=== PATIENT | female | born 1980 | race Caucasian/White ===

== ENCOUNTER 2016-11-29 00:51 | Emergency (ER) | payer SELFPAY ==
[2016-11-29 00:51] VITALS: BMI 27.3
[2016-11-29 01:06] VITALS: RESP 20
[2016-11-29] MEDS ORDERED: Sodium Chloride 0.9% 1,000 ML IV ONE ×2 (01:13→01:14)
--- NOTE | 2016-11-29 01:24 | C.PDOC ---
History Of Present Illness Patient is a 35 year old female who presents to the ER with a complaint of severe burning during urination, associated with back pain and lower abdominal pain. Patient states her urine is cloudy. Patient also reports her LMP was more than a month ago. Denies fever, nausea, and diarrhea. Chief Complaint (Nursing): Female Genitourinary History/Exam Limitations: no limitations Current Symptoms Are (Timing): Still Present Quality Of Discomfort: Burning Associated Symptoms: Back Pain, Urinary Symptoms (Dysuria ), Other (Lower abdominal pain) Past Medical History Reviewed: Historical Data, Nursing Documentation, Vital Signs Vital Signs: Last Vital Signs Temp 97.9 F 11/29/16 01:05 Pulse 120 H 11/29/16 01:05 Resp 20 11/29/16 01:05 BP 117/68 11/29/16 01:05 Pulse Ox 96 11/29/16 04:29 - Medical History PMH: Fibromyalgia Surgical History: No Surg Hx - [facility] Procedures DETOXIFICATION SERVICES FOR SUBSTANCE ABUSE TREATMENT (04/24/16) INDIVIDUAL PSYCHOTHERAPY, SUPPORTIVE (04/24/16) INJECT/INFUSE ELECTROLYT (08/30/13) Family History: States: Unknown Family Hx - Social History Hx Tobacco Use: No Hx Alcohol Use: No Hx Substance Use: Yes - Immunization History Hx Tetanus Toxoid Vaccination: No Hx Influenza Vaccination: Yes Hx Pneumococcal Vaccination: No Review Of Systems Constitutional: Negative for: Fever, Chills Gastrointestinal: Positive for: Abdominal Pain (Lower). Negative for: Nausea, Vomiting Genitourinary: Positive for: Dysuria Musculoskeletal: Positive for: Back Pain Physical Exam - Physical Exam Appears: Non-toxic, Other (Moderate distress) Skin: Normal Color, Warm, Dry Head: Atraumatic, Normacephalic Oral Mucosa: Moist Chest: Symmetrical, No Tenderness Cardiovascular: Rhythm Regular, No Murmur Respiratory: Normal Breath Sounds, No Rales, No Rhonchi, No Wheezing Gastrointestinal/Abdominal: Soft, No Tenderness Back: Paraspinal Tenderness (Bilateral Lumbar) Neurological/Psych: Oriented x3, Normal Speech, Normal Cognition ED Course And Treatment - Laboratory Results Result Diagrams: 11/29/16 01:37 11/29/16 01:37 O2 Sat by Pulse Oximetry: 96 (Room air) Pulse Ox Interpretation: Normal - CT Scan/US CT of abd/pelvis w/o contrast Other Rad Studies (CT/US): Read By Radiologist, Radiology Report Reviewed CT/US Interpretation: IMPRESSION: There is mild left hydroureteronephrosis. This is likely secondary to a recently passed stone versus. pyelonephritis.Clinical correlation is advised. Progress Note: Blood work, urinalysis, CT of Abd/pelvis w/o IV or PO contrast and POC test ordered. IV fluids administered. Disposition Counseled Patient/Family Regarding: Diagnosis - Disposition Referrals: [facility] [Outside] Disposition: HOME/ ROUTINE Disposition Time: 04:39 Condition: STABLE Prescriptions: Ciprofloxacin [Cipro] 1 tab PO BID #14 tab Phenazopyridine HCl [Pyridium] 200 mg PO TID #20 tablet traMADol/Acetaminophen [Ultracet 325 MG-37.5 MG] 1 tab PO Q6 #14 tab Instructions: Urinary Tract Infection in Women (GEN), Renal Colic (GEN) - POA Present On Arrival: None - Clinical Impression Clinical Impression: Unspecified renal colic, Urinary tract infection - Scribe Statement The provider has reviewed the documentation as recorded by the Scribwilner Olivier All medical record entries made by the Faridehibwilner were at my direction and personally dictated by me. I have reviewed the chart and agree that the record accurately reflects my personal performance of the history, physical exam, medical decision making, and the department course for this patient. I have also personally directed, reviewed, and agree with the discharge instructions and disposition.
[2016-11-29] MEDS ORDERED: Sodium Chloride 0.9% 1,000 ML ONE (01:29)
[2016-11-29 01:45] LABS: BASO % 0.2 % (0.0-2.0); EOS % 0.2 % (0.0-4.0); HEMATOCRIT 33.2 % (34.0-47.0); LYMPH # 2.1 K/uL (1.0-4.3); MEAN CELL VOLUME 83.1 fL (81.0-99.0); MEAN CORPUSCULAR HEMOGLOBIN 27.6 pg (27.0-31.0); MEAN CORPUSCULAR HGB CONC 33.2 g/dL (33.0-37.0); MEAN PLATELET VOLUME 8.5 fL (7.2-11.7); MONO % 12.3 % (0.0-10.0); RED CELL DISTRIBUTION WIDTH 12.6 % (11.5-14.5); WHITE BLOOD COUNT 15.9 K/uL (4.8-10.8)
[2016-11-29 01:51] LABS: CHLORIDE 96 mmol/L (98-107); POTASSIUM 4.7 mmol/L (3.6-5.2); SODIUM 135 mmol/L (132-148)
[2016-11-29 01:53] LABS: BILIRUBIN,TOTAL 1.8 mg/dL (0.2-1.3); GFR AFRICAN-AMERICAN > 60
[2016-11-29 01:54] LABS: ALB/GLOB RATIO 1.1 (1.0-2.1); ALKALINE PHOSPHATASE 44 U/L (38-126); ALT/SGPT 7 U/L (9-52); AST/SGOT 28 U/L (14-36); BLOOD UREA NITROGEN 20 mg/dL (7-17); CALCIUM 8.7 mg/dl (8.6-10.4); CARBON DIOXIDE 25 mmol/L (22-30); GLUCOSE,RANDOM 111 mg/dL (65-105); TOTAL PROTEIN 8.1 g/dL (6.3-8.3)
[2016-11-29] MEDS ORDERED: Ciprofloxacin 400mg/200ml D5W 400 MG/200 ML BAG IVPB STA (02:29)
[2016-11-29 03:35] LABS: RBC URINE 27 /hpf (0-3); URINE BACTERIA OCC (<OCC); URINE BILIRUBIN NEGATIVE (NEGATIVE); URINE BLOOD 2+ (NEGATIVE); URINE COLOR Yellow (YELLOW); URINE GLUCOSE (UA) NORMAL (Normal); URINE KETONE NEGATIVE (NEGATIVE); URINE LEUKOCYTE ESTERASE 3+ Leu/uL (Negative); URINE PROTEIN 1+ mg/dL (NEGATIVE); URINE UROBILINOGEN NORMAL mg/dL (0.2-1.0); WBC URINE 325 /hpf (0-5)
[2016-11-29] MEDS ORDERED: Ciprofloxacin 400mg/200ml D5W 400 MG/200 ML BAG IVPB ONE (04:45)
[2016-11-29 05:33] VITALS: BP 130/82; PULSE 82; TEMP 98; O2SAT 98
--- NOTE | 2016-11-29 08:32 | CT ---
PROCEDURE: CT Abdomen and Pelvis without intravenous contrast HISTORY: back pain, dysuria COMPARISON: None. TECHNIQUE: Axial computed tomographic images were performed through the abdomen and pelvis without intravenous contrast. Subsequently, sagittal and coronal reformatted images were obtained. Radiation dose: Total exam DLP = 357 mGy-cm. This CT exam was performed using one or more of the following dose reduction techniques: Automated exposure control, adjustment of the mA and/or kV according to patient size, and/or use of iterative reconstruction technique. FINDINGS: LOWER THORAX: 2 millimeter subpleural nodule within the anterior aspect of the right middle lobe. Additional 3 millimeter pulmonary nodule in the lateral aspect of the left lower lobe in a subpleural position. 5 millimeter ground-glass nodule within the posterior aspect of the left lower lobe on series 3, image 13. LIVER: Unremarkable. No gross lesion or ductal dilatation. GALLBLADDER AND BILE DUCTS: Unremarkable. PANCREAS: Not well visualized without contrast. If there is concern for pancreatic changes, correlation with a contrast-enhanced CT is recommended. SPLEEN: Unremarkable. ADRENALS: Unremarkable. No mass. KIDNEYS AND URETERS: Mild left hydroureteronephrosis. No definite obstructing ureteral mass or calcification is identified. VASCULATURE: Unremarkable. No aortic aneurysm. BOWEL: Moderate fecal retention in the colon. Under distended distal sigmoid colon and rectum. APPENDIX: No findings to suggest acute appendicitis. PERITONEUM: Unremarkable. No free fluid. No free air. LYMPH NODES: Unremarkable. No enlarged lymph nodes. BLADDER: Unremarkable. REPRODUCTIVE: Unremarkable. BONES: No acute fracture. OTHER FINDINGS: Markedly limited study without intravenous contrast. IMPRESSION: Markedly limited study without intravenous contrast. Mild left hydroureteronephrosis. This is likely secondary to a recently passed calculus versus pyelonephritis. Clinical correlation is advised. Sub centimeter pulmonary nodules as described above. 3-6 month interval followup may be helpful. These findings were preliminarily reported at 4:23 a.m. on 11/29/[address] Janae Anna of [employer].
== END 2016-11-29 05:30 | disposition home or self-care (01) ==
LOC: C.ER 00:51
DX: N39.0 Urinary tract infection, site not specified (principal); N23 Unspecified renal colic
CPT/HCPCS: 74176; 80053; 81001; 83690; 84702; 84703; 85025; 87086; 87181; 96361; 96365; 96375; 99285; J0744; J1885; J7040

== ENCOUNTER 2016-12-07 18:58 | Emergency (ER) | payer SELFPAY ==
[2016-12-07 18:59] VITALS: BMI 27.3
[2016-12-07] MEDS ORDERED: HYDROmorphone 0.5 mg/0.5 ml ISec IM STA (19:10)
[2016-12-07 19:43] VITALS: TEMP 97.7
[2016-12-07 19:46] VITALS: BP 129/85; PULSE 64; RESP 20; O2SAT 100
--- NOTE | 2016-12-07 20:48 | C.PDOC ---
History Of Present Illness A 35 year old female presents to the ER c/o dislocated shoulder after a mechanical fall prior to arrival. Patient notes that she mechanically fell over boxes and fell landing on her stretched out left arm. 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 Time Seen by Provider: 12/07/16 19:04 Chief Complaint (Nursing): Upper Extremity Problem/Injury History Per: Patient History/Exam Limitations: no limitations Onset/Duration Of Symptoms: Hrs Current Symptoms Are (Timing): Still Present Quality: "Pain" Severity: Severe Recent travel outside of the [place]: No Additional History Per: Patient Past Medical History Reviewed: Historical Data, Nursing Documentation, Vital Signs Vital Signs: Last Vital Signs Temp 97.7 F 12/07/16 19:01 Pulse 64 12/07/16 19:44 Resp 20 12/07/16 19:44 BP 129/85 12/07/16 19:44 Pulse Ox 100 12/07/16 21:16 - Medical History PMH: Fibromyalgia - [facility] Procedures DETOXIFICATION SERVICES FOR SUBSTANCE ABUSE TREATMENT (04/24/16) INDIVIDUAL PSYCHOTHERAPY, SUPPORTIVE (04/24/16) INJECT/INFUSE ELECTROLYT (08/30/13) Family History: States: Unknown Family Hx - Social History Hx Tobacco Use: No Hx Alcohol Use: No Hx Substance Use: Yes - Immunization History Hx Influenza Vaccination: Yes Review Of Systems Except As Marked, All Systems Reviewed And Found Negative. Constitutional: Negative for: Fever, Chills Gastrointestinal: Negative for: Nausea, Vomiting Musculoskeletal: Positive for: Arm Pain (Left arm injury) Neurological: Negative for: Dizziness, Other (LOC) Physical Exam - Physical Exam Appears: Non-toxic, In Acute Distress Skin: Warm, Dry Head: Atraumatic, Normacephalic Extremity: Capillary Refill (+2), Other ("hollow" at sholder with palpable humural head anterior chest wall, good medical interpreter and sensation across hand) Pulses: Left Radial: Normal, Right Radial: Normal Neurological/Psych: Oriented x3, Normal Speech, Normal Cognition, Normal Motor, Normal Sensation ED Course And Treatment O2 Sat by Pulse Oximetry: 100 (RA) Pulse Ox Interpretation: Normal Progress Note: Medicated for pain x ray ordered and reviewed Medical Decision Making Medical Decision Making: xray (+) anterior dislocation no fx After verbal consent the shoulder was relocated using the [place] method procedure tolerated well' Post procedure good ROM, distal pulse 2+, sensation intacked Need for follow up discussed with pt Disposition Counseled Patient/Family Regarding: Diagnosis, Need For Followup - Disposition Referrals: Rubén Powell III, MD [Staff Provider] - Disposition: HOME/ ROUTINE Disposition Time: 20:46 Condition: GOOD Prescriptions: Naproxen [Naprosyn] 1 tab PO BID PRN #25 tab PRN Reason: Pain Instructions: Shoulder Dislocation (ED) - Clinical Impression Clinical Impression: Dislocation, shoulder, anterior - Scribe Statement The provider has reviewed the documentation as recorded by the Scribe Sunitha delacruz All medical record entries made by the Scribe were at my direction and personally dictated by me. I have reviewed the chart and agree that the record accurately reflects my personal performance of the history, physical exam, medical decision making, and the department course for this patient. I have also personally directed, reviewed, and agree with the discharge instructions and disposition.
--- NOTE | 2016-12-08 12:55 | RAD ---
PROCEDURE: Radiographs of the Left Shoulder HISTORY: pain COMPARISON: No prior. FINDINGS: BONES: No acute fractures. JOINTS: Anterior inferior dislocation of the humeral head relative to the glenoid. SOFT TISSUES: Normal. OTHER FINDINGS: None. IMPRESSION: Dislocation of the left humeral head relative to the glenoid. Limited study, no acute fractures identified. Concordant results with the preliminary interpretation rendered by the emergency department physician procedure.
--- NOTE | 2016-12-08 13:28 | RAD ---
PROCEDURE: Radiographs of the Left Shoulder HISTORY: post reduction COMPARISON: December 07, 2016. Pre reduction FINDINGS: BONES: Normal. No fracture. JOINTS: Normal. Glenohumeral and acromioclavicular joints preserved. No osteoarthritis. SOFT TISSUES: Normal. OTHER FINDINGS: None. IMPRESSION: Satisfactory position alignment of the glenohumeral relationship. No fracture identified on this single portable view. Concordant results with the preliminary interpretation rendered by the emergency department physician procedure.
== END 2016-12-07 21:15 | disposition home or self-care (01) ==
LOC: C.ER 18:58
DX: S43.015A Anterior dislocation of left humerus, initial encounter (principal); W01.0XXA Fall on same level from slipping, tripping and stumbling without subsequent striking against object, initial encounter
CPT/HCPCS: 23650; 73030; 96372; 99283; J1170

== ENCOUNTER 2018-04-04 23:31 | Emergency (ER) | payer MEDICAID ==
[2018-04-04 23:32] VITALS: BMI 27.3
--- NOTE | 2018-04-05 00:21 | C.PDOC ---
History Of Present Illness 37 year old female presents to the ED c/o left shoulder dislocation. Patient reports she was going downstairs when her left shoulder popped out of place. Patient denies injury,fall, trauma, weakness, numbness. Chief Complaint (Nursing): Upper Extremity Problem/Injury History Per: Patient History/Exam Limitations: no limitations Onset/Duration Of Symptoms: Hrs Current Symptoms Are (Timing): Still Present Quality: "Pain" Exacerbating Factor(s): Movement Additional History Per: Patient Past Medical History Reviewed: Historical Data, Nursing Documentation, Vital Signs Vital Signs: Last Vital Signs Temp 98.0 F 04/04/18 23:52 Pulse 106 H 04/04/18 23:52 Resp 22 04/04/18 23:52 BP 125/76 04/04/18 23:52 Pulse Ox 100 04/05/18 00:21 - Medical History PMH: Fibromyalgia Denies: Depression, Diabetes, Hepatitis, HIV, HTN, Chronic Kidney Disease, Seizures, Sexually Transmitted Disease Surgical History: No Surg Hx - [facility] Procedures DETOXIFICATION SERVICES FOR SUBSTANCE ABUSE TREATMENT (04/24/16) INDIVIDUAL PSYCHOTHERAPY, SUPPORTIVE (04/24/16) INJECT/INFUSE ELECTROLYT (08/30/13) Family History: States: Unknown Family Hx - Social History Hx Tobacco Use: No Hx Alcohol Use: No Hx Substance Use: Yes - Immunization History Hx Tetanus Toxoid Vaccination: No Hx Influenza Vaccination: Yes Hx Pneumococcal Vaccination: No Review Of Systems Constitutional: Negative for: Fever, Chills Eyes: Negative for: Vision Change Cardiovascular: Negative for: Chest Pain, Palpitations Musculoskeletal: Positive for: Shoulder Pain. Negative for: Arm Pain, Hand Pain Skin: Negative for: Rash Neurological: Negative for: Weakness, Numbness Physical Exam - Physical Exam Appears: Non-toxic, In Acute Distress Skin: Normal Color, Warm, Dry Head: Atraumatic, Normacephalic Eye(s): bilateral: Normal Inspection Neck: Normal ROM, Supple Chest: Symmetrical Cardiovascular: Rhythm Regular Respiratory: Normal Breath Sounds, No Rales, No Rhonchi, No Wheezing Extremity: No Normal ROM (left shoulder), Tenderness (left shoulder), Capillary Refill (< 2 seconds), Deformity (left shoulder anterior deltoid) Pulses: Left Radial: Normal, Right Radial: Normal Neurological/Psych: Oriented x3, Normal Speech, Normal Motor, Normal Sensation Gait: Steady ED Course And Treatment O2 Sat by Pulse Oximetry: 100 (On RA) Pulse Ox Interpretation: Normal Medical Decision Making Medical Decision Making: traction countertraction procedure was done, patient tolerated the procedure well and did not require anesthesia Disposition Counseled Patient/Family Regarding: Diagnosis - Disposition Referrals: [facility] [Outside] Rubén Powell III, MD [Staff Provider] - Disposition: HOME/ ROUTINE Disposition Time: 00:19 Condition: IMPROVED Instructions: Shoulder Dislocation (DC) Forms: [employer] (Angolan) - POA Present On Arrival: None - Clinical Impression Clinical Impression: Dislocated shoulder - Scribe Statement The provider has reviewed the documentation as recorded by the Scribe Keaton Dickinson All medical record entries made by the Scribe were at my direction and personally dictated by me. I have reviewed the chart and agree that the record accurately reflects my personal performance of the history, physical exam, medical decision making, and the department course for this patient. I have also personally directed, reviewed, and agree with the discharge instructions and disposition.
[2018-04-05 01:02] VITALS: BP 118/71; PULSE 81; RESP 18; TEMP 98.2; O2SAT 99
== END 2018-04-05 01:02 | disposition home or self-care (01) ==
LOC: C.ER 23:31
DX: S43.085A Other dislocation of left shoulder joint, initial encounter (principal); X58.XXXA Exposure to other specified factors, initial encounter

== ENCOUNTER 2018-08-11 10:20 | Emergency (ER) | payer MEDICAID ==
[2018-08-11 12:18] LABS: HCG,QUALITATIVE URINE POSITIVE (NEGATIVE)
[2018-08-11 12:25] LABS: SQUAMOUS EPITHIAL 46 /hpf (0-5); URINE BACTERIA FEW (<OCC); URINE BILIRUBIN 1+ (NEGATIVE); URINE BLOOD NEGATIVE (NEGATIVE); URINE CLARITY Hazy (Clear); URINE COLOR Amber (YELLOW); URINE GLUCOSE (UA) NORMAL (Normal); URINE LEUKOCYTE ESTERASE TRACE Leu/uL (Negative); URINE PROTEIN 2+ mg/dL (NEGATIVE)
[2018-08-11] MEDS ORDERED: Lactated Ringer's 1,000 ML IV ONE (12:27)
[2018-08-11] MEDS ORDERED: Lactated Ringer's 1,000 ML IV SCH (12:30)
[2018-08-11 12:45] LABS: BARBITURATES, UR NEGATIVE (NEGATIVE); BENZODIAZEPINES, UR NEGATIVE (NEGATIVE); PHENCYCLIDINE, UR NEGATIVE (NEGATIVE)
[2018-08-11 13:18] LABS: OPIATES, UR POSITIVE (NEGATIVE)
[2018-08-11 13:40] LABS: BASO % 0.4 % (0.0-2.0); EOS % 0.1 % (0.0-4.0); HEMOGLOBIN 10.3 g/dL (11.0-16.0); LYMPH # 0.9 K/uL (1.0-4.3); MEAN CORPUSCULAR HEMOGLOBIN 25.3 pg (27.0-31.0); MEAN CORPUSCULAR HGB CONC 32.8 g/dL (33.0-37.0); MEAN PLATELET VOLUME 10.3 fL (7.2-11.7); MONO # 0.4 K/uL (0.0-0.8); NEUT # 3.7 K/uL (1.8-7.0); NEUT % 74.5 % (50.0-75.0); RBC 4.07 Mil/uL (3.80-5.20); RED CELL DISTRIBUTION WIDTH 13.9 % (11.5-14.5)
[2018-08-11 13:42] LABS: MEAN CELL VOLUME 77.1 fL (81.0-99.0)
[2018-08-11 13:52] LABS: ALB/GLOB RATIO 0.9 (1.0-2.1); ALBUMIN 3.2 g/dL (3.5-5.0); ALT/SGPT 574 U/L (9-52); AST/SGOT 530 U/L (14-36); BLOOD UREA NITROGEN 9 mg/dL (7-17); CALCIUM 8.2 mg/dl (8.6-10.4); GFR NON-AFRICAN AMERICAN > 60
[2018-08-11] MEDS ORDERED: cefTRIAXone 2 GM in Sodium Chloride 0.9% 100 ML IVPB SCH (14:00)
[2018-08-11 14:42] LABS: BASO % 0.3 % (0.0-2.0); EOS % 0.1 % (0.0-4.0); HEMOGLOBIN 10.4 g/dL (11.0-16.0); LYMPH % 18.3 % (20.0-40.0); MEAN CELL VOLUME 77.4 fL (81.0-99.0); MEAN CORPUSCULAR HEMOGLOBIN 25.2 pg (27.0-31.0); MEAN CORPUSCULAR HGB CONC 32.5 g/dL (33.0-37.0); MEAN PLATELET VOLUME 9.9 fL (7.2-11.7); MONO # 0.4 K/uL (0.0-0.8); MONO % 6.8 % (0.0-10.0); NEUT % 74.5 % (50.0-75.0); RBC 4.12 Mil/uL (3.80-5.20); RED CELL DISTRIBUTION WIDTH 14.2 % (11.5-14.5); WHITE BLOOD COUNT 5.4 K/uL (4.8-10.8)
[2018-08-11 17:23] LABS: RAPID PLASMA REAGIN NONREACTIVE (NONREACTIVE)
[2018-08-11 20:13] VITALS: BP 129/76; PULSE 103; RESP 20
--- NOTE | 2018-08-12 14:43 | OBHP ---
Datetime: 08/11/2018 12:10 IP Adm Impression: No Active Labor IP Chief Complaint Other: Abdominal pain with N_V No Care IP Admit Plan: Observation/Evaluation Pelvic Type - PN: Adequate Extremities - PN: Normal Abdomen - PN: Normal Back - PN: Normal Breast - PN: Not Done Lungs - PN: Normal Heart - PN: Normal Thyroid - PN: Normal Neurologic - PN: Normal HEENT - PN: Normal General - PN: Normal FHR - Baseline A Provider: 150 EGA AdmitDate IP: 34.5 Vital Signs Provider: Reviewed; Within Normal Limits IP Chief Complaint: Maternal discomfort NICHD Variability Prov Fetus A: Minimal - Undetectable to <5bpm NICHD Accel Fetus A IP Provider: [id number] NICHD Decel Fetus A IP Provider: None Genitourinary Exam: Normal DTRs - PN: Normal
== END 2018-08-11 14:35 | disposition home or self-care (01) ==
LOC: C.EROB 10:20
DX: O26.893 Other specified pregnancy related conditions, third trimester (principal); Z3A.34 34 weeks gestation of pregnancy; R10.9 Unspecified abdominal pain
CPT/HCPCS: 80053; 80324; 80345; 80346; 80349; 80353; 80358; 80361; 81001; 83735; 83992; 84100; 84703; 85025; 86592; 86703; 86706; 86762; 86850; 86900; 87081; 87491; 87591; 96361; 96374; 96375; 99283; J0696; J7120

== ENCOUNTER 2018-08-26 03:43 | Inpatient (IN) | payer MEDICAID ==
[2018-08-26] MEDS ORDERED: Oxytocin 10 Units/ml Inj ONE (05:15)
--- NOTE | 2018-08-26 05:16 | OBDS ---
DELIVERY PERSONNEL Delivery Doctor: Mariah Wooten MD Scrub Nurse: Stefanie Gallegos RN Bdr: Sindhu Cruz RN MATERNAL INFORMATION Delivery Anesthesia: None Medications in Delivery: 20 UNITS Pitocin IM to left thigh Estimated Blood Loss (ml): 500 Placenta Cultured: Yes Maternal Complications: Precipitous Labor (<3hrs); Other Other Maternal Complications: Methadone use Provider Comments: Precipitpos delivery of live male infant, ASH position, loose nuchalcord x 1 easi ly reduced over head. 's mouth and nose bulb suctioned as delayed cord clamping observed. Umbil ical cord doubly clamped and cut; infant placed on mother's abdomen. Cord ph obtained; 7.18, base XS -16.4. Straight catherterization performed under sterile conditions. Approx 50 mL concentrated urine obta ined. Delivery of placenta with uterine exploration. Uterus firm and contracted. Placenta intact, 3 ves aditya cord. 20 units pitocin administered IM. Cervix, vagina, perineum inspected - no lacerations. Patient tolerated procedure well; hemostasis assured. was attended to by pediatric nurse and Attending, Dr. Clarke. EBL 500 mL Weight 6lb 6oz 's 9/9 LABOR SUMMARY EDC: 09/17/2018 00:00 No. Babies in Womb: 1 Labor Anesthesia: None LABOR INFORMATION Onset of Labor: 08/26/2018 03:00 Complete Dilatation: 08/26/2018 03:43 Oxytocin: N/A Steroids Given: None Reason Steroids Not Administered: Not Applicable MEMBRANES Membranes Rupture Method: Spontaneous Rupture of Membranes: 08/26/2018 03:00 Length of Rupture (hrs): 0.97 Amniotic Fluid Color: Clear Amniotic Fluid Amount: Moderate Amniotic Fluid Odor: Normal STAGES OF LABOR Stage 1 hrs: 0 Stage 1 min: 43 Stage 2 hrs: 0 Stage 2 min: 15 Stage 3 hrs: 0 Stage 3 min: 26 Total Time in Labor hrs: 1 Total Time in Labor min: 24 VAGINAL DELIVERY Episiotomy: None Laceration Extension: N/A Laceration Type: None Laceration Repair: Not Applicable Initial Vag Sponge Count: 10 Final Vag Sponge Count: 10 Sponge Count Correct: Yes Sharps Count Correct: N/A Count Comment: Correct BABY A INFORMATION Delivery Date/Time: 08/26/2018 03:58 Method of Delivery: Vaginal Born in Route : No : N/A Forceps: N/A Vacuum Extraction: N/A Shoulder Dystocia : No SHOULDER DYSTOCIA BABY A Delivery Date/Time: 08/26/2018 03:58 PRESENTATION/POSITION BABY A Presentation: Cephalic Cephalic Presentation: Vertex Vertex Position: Left Occipital Anterior Breech Presentation: N/A PLACENTA INFORMATION BABY A Placenta Delivery Time : 08/26/2018 04:24 Placenta Method of Delivery: Spontaneous Placenta Status: Delivered SCORES BABY A Heart Rate 1 min: >100 bpm Resp Effort 1 min: Good Cry Reflex Irritability 1 min: Cough or Sneeze or Pulls Away Muscle Tone 1 min: Active Motion Color 1 min: Body [place], Extremities Blue SCORE 1 MIN: 9 Heart Rate 5 min: >100 bpm Resp Effort 5 min: Good Cry Reflex Irritability 5 min: Cough or Sneeze or Pulls Away Muscle Tone 5 min: Active Motion Color 5 min: Body [place], Extremities Blue SCORE 5 MIN: 9 INFORMATION BABY A Gestational Age at Delivery: 36.6 Gestational Status: Term Outcome : Liveborn Infant Condition : Stable Infant Sex: Male IDENTIFICATION/MEDS BABY A ID Band Number: [id number] ID Band Location: Left Leg; Left Arm Sensor Applied: Yes Sensor Number: [id number] Sensor Location : Cord Clamp Vitamin K Given : Aquamephyton 1 mg IM; Left Thigh Erythromycin Given: Given Both Eyes WEIGHT/LENGTH BABY A Infant Birthweight (gms): 2900 Infant Weight (lb): 6 Weight (oz): 6 Infant Length Inches: 19.00 Length cms: 48.3 CORD INFORMATION BABY A No. Cord Vessels: 3 Nuchal Cord : Around Neck x1, Loose Cord Blood Taken: Yes Infant Suction: Mouth; Nose ASSESSMENT BABY A Infant Complications: None Physical Findings at Delivery: Within Normal Limits Respirations: Appears Normal Engineering Team Supervisor/ALS Called : No Infant Care By: DR CLARKE Transferred To: Remains with Mother
[2018-08-26] MEDS ORDERED: Oxycodone/Acetaminophen 5/325 mg Tab PO PRN (05:32)
[2018-08-26] MEDS ORDERED: Benzocaine/Menthol 20%-0.5% Topical Spray (60 ml) TOP PRN (05:32)
[2018-08-26 07:14] LABS: BASO # 0.1 K/uL (0.0-0.2); MEAN CORPUSCULAR HEMOGLOBIN 25.3 pg (27.0-31.0); MEAN CORPUSCULAR HGB CONC 31.6 g/dL (33.0-37.0); NEUT # 4.3 K/uL (1.8-7.0); WHITE BLOOD COUNT 7.1 K/uL (4.8-10.8)
[2018-08-26 07:19] LABS: BASO % 1.2 % (0.0-2.0); EOS % 0.7 % (0.0-4.0); HEMOGLOBIN 9.5 g/dL (11.0-16.0); LYMPH # 2.1 K/uL (1.0-4.3); MEAN PLATELET VOLUME 11.1 fL (7.2-11.7); MONO # 0.6 K/uL (0.0-0.8); MONO % 8.3 % (0.0-10.0); NEUT % 60.8 % (50.0-75.0); RBC 3.77 Mil/uL (3.80-5.20); RED CELL DISTRIBUTION WIDTH 16.6 % (11.5-14.5)
[2018-08-26 07:22] LABS: MEAN CELL VOLUME 79.9 fL (81.0-99.0)
[2018-08-26 07:59] LABS: BARBITURATES, UR NEGATIVE (NEGATIVE); BENZODIAZEPINES, UR NEGATIVE (NEGATIVE); PHENCYCLIDINE, UR NEGATIVE (NEGATIVE)
[2018-08-26 08:04] LABS: SQUAMOUS EPITHIAL < 1 /hpf (0-5); URINE BACTERIA RARE (<OCC)
[2018-08-26 08:05] LABS: URINE BILIRUBIN NEGATIVE (NEGATIVE); URINE BLOOD 1+ (NEGATIVE); URINE CLARITY Clear (Clear); URINE GLUCOSE (UA) NORMAL (Normal); URINE LEUKOCYTE ESTERASE NEG Leu/uL (Negative); URINE PROTEIN NEGATIVE (NEGATIVE)
[2018-08-26 08:14] LABS: URINE COLOR YELLOW (YELLOW)
[2018-08-26 08:18] LABS: OPIATES, UR POSITIVE (NEGATIVE)
[2018-08-26 08:25] LABS: ALBUMIN 2.9 g/dL (3.5-5.0); ALT/SGPT 548 U/L (9-52); AST/SGOT 363 U/L (14-36); BLOOD UREA NITROGEN 10 mg/dL (7-17); CALCIUM 8.1 mg/dl (8.6-10.4); GFR NON-AFRICAN AMERICAN > 60
[2018-08-26 09:59] LABS: HEPATITIS A IGM NEGATIVE (NEGATIVE); HEPATITIS B CORE AB NEGATIVE (NEGATIVE)
[2018-08-26] MEDS: Multiple Vitamins Tab PO SCH (10:02)
[2018-08-26 10:11] LABS: HEPATITIS C ANTIBODY NEGATIVE (NEGATIVE)
[2018-08-26 11:03] LABS: HEPATITIS B SURFACE AG Negative (NEGATIVE)
--- NOTE | 2018-08-26 14:37 | CP.PCM.CON ---
History of Present Illness - History of Present Illness History of Present Illness: GI Service Consult CC: elevated liver chemistries HPI: 36 year old woman had uneventful labor and delivery this morning. Feels well. Noted to have markedly elevated liver chemistries yesterday and today, asymptomatic, apparently new onset. Denies jaundice, Hepatitis, abdominal pain, N/V. Sono will be done this afternoon. Hepatitis profile is negative. On Methadone maintenance chronically for Opiate dependence. Denies OTC or herbal remedies. Was not pre-eclamptic. Review of Systems - Gastrointestinal Gastrointestinal: As Per HPI. absent: Abdominal Pain, Constipation, Loose Stools, Melena, Nausea, Vomiting - Genitourinary Genitourinary: absent: Dysuria, Flank Pain - Musculoskeletal Musculoskeletal: Arthralgias. absent: Back Pain - Integumentary Integumentary: absent: Jaundice - Psychiatric Psychiatric: Anxiety Past Patient History - Infectious Disease Hx of Infectious Diseases: None - Tetanus Immunizations Tetanus Immunization: Unknown - Past Medical History & Family History Past Medical History?: Yes - Past Social History Smoking Status: Former Smoker Alcohol: None Drugs: Opiates - CARDIAC Hx Hypertension: No - PULMONARY Hx Respiratory Disorders: No Hx Tuberculosis: No - NEUROLOGICAL Hx Seizures: No - HEENT Hx HEENT Problems: No - RENAL Hx Chronic Kidney Disease: No Hx Kidney Stones: Yes - ENDOCRINE/METABOLIC Hx Endocrine Disorders: No - HEMATOLOGICAL/ONCOLOGICAL Hx Cirrhosis: No Hx Hepatitis A: No Hx Hepatitis B: No Hx Hepatitis C: No Hx Human Immunodeficiency Virus (HIV): No - INTEGUMENTARY Hx Dermatological Problems: No - MUSCULOSKELETAL/RHEUMATOLOGICAL Hx Musculoskeletal Disorders: Yes (Fibromyalgia) - GASTROINTESTINAL Hx Gastrointestinal Disorders: No - GENITOURINARY/GYNECOLOGICAL Hx Sexually Transmitted Disorders: No - PSYCHIATRIC Hx Depression: No Hx Substance Use: Yes - SURGICAL HISTORY Hx Surgeries: Yes Other/Comment: Rt. wrist surgery - ANESTHESIA Hx Anesthesia: Yes Hx Anesthesia Reactions: No Meds Allergies/Adverse Reactions: Allergies Allergy/AdvReac Type Severity Reaction Status Date / Time No Known Allergies Allergy Verified 04/04/18 23:58 - Medications Medications: Current Medications Benzocaine/Menthol (Dermoplast 20%-0.5%) 0 ml TOP Q6 PRN PRN Reason: Perineal Discomfort Docusate Sodium (Colace) 100 mg PO BID [facility] Last Admin: 08/26/18 10:03 Dose: Not Given Ferrous Gluconate (Fergon) 324 mg PO BID [facility] Last Admin: 08/26/18 10:03 Dose: Not Given Ibuprofen (Motrin Tab) 600 mg PO Q6 PRN PRN Reason: Pain, Mild (1-3) Last Admin: 08/26/18 10:02 Dose: 600 mg Multivitamins (Hexavitamin) 1 tab PO DAILY [facility] Last Admin: 08/26/18 10:02 Dose: 1 tab Sennosides (Senokot Tab) 17.2 mg PO DAILY [facility] Last Admin: 08/26/18 10:03 Dose: Not Given Physical Exam - Constitutional Appears: Well, No Acute Distress - Head Exam Head Exam: NORMOCEPHALIC - Eye Exam Eye Exam: Normal appearance. absent: Scleral icterus - Neck Exam Neck exam: Positive for: Normal Inspection - Respiratory Exam Respiratory Exam: NORMAL BREATHING PATTERN - Cardiovascular Exam Cardiovascular Exam: REGULAR RHYTHM - GI/Abdominal Exam GI & Abdominal Exam: Soft. absent: Distended, Mass, Organomegaly, Tenderness - Neurological Exam Neurological exam: Alert, Oriented x3 - Psychiatric Exam Psychiatric exam: Normal Affect, Normal Mood - Skin Skin Exam: Normal Color Results - Vital Signs Recent Vital Signs: Last Vital Signs Temp 97.8 F 08/26/18 08:41 Pulse 62 08/26/18 08:41 Resp 18 08/26/18 08:41 BP 130/80 08/26/18 08:41 Pulse Ox 98 08/26/18 08:41 - Labs Result Diagrams: 08/26/18 05:10 08/26/18 07:59 Labs: Laboratory Results - last 24 hr 08/26/18 08/26/18 08/26/18 03:58 03:58 05:10 WBC 7.1 RBC 3.77 L Hgb 9.5 L Hct 30.1 L MCV 79.9 L D MCH 25.3 L MCHC 31.6 L RDW 16.6 H Plt Count 243 MPV 11.1 Neut % (Auto) 60.8 Lymph % (Auto) 29.0 [place] % (Auto) 8.3 Eos % (Auto) 0.7 Baso % (Auto) 1.2 Neut # (Auto) 4.3 Lymph # (Auto) 2.1 [place] # (Auto) 0.6 Eos # (Auto) 0.0 Baso # (Auto) 0.1 Sodium Potassium Chloride Carbon Dioxide Anion Gap BUN Creatinine Est GFR ( Amer) Est GFR (Non-Af Amer) Random Glucose Calcium Total Bilirubin AST ALT Alkaline Phosphatase Total Protein Albumin Globulin Albumin/Globulin Ratio Urine Color Yellow Urine Clarity Clear Urine pH 6.0 Ur Specific [place] 1.018 Urine Protein Negative Urine Glucose (UA) Normal Urine Ketones Negative Urine Blood 1+ H Urine Nitrate Negative Urine Bilirubin Negative Urine Urobilinogen 4.0 H Ur Leukocyte Esterase Neg Urine WBC (Auto) 1 Urine RBC (Auto) 91 H Ur Squamous Epith Cells < 1 Urine Bacteria Rare Urine Opiates Screen Positive H Urine Methadone Screen Positive H Ur Barbiturates Screen Negative Ur Phencyclidine Scrn Negative Ur Amphetamines Screen Negative U Benzodiazepines Scrn Negative U Oth Cocaine Metabols Negative U Cannabinoids Screen Negative Hepatitis A IgM Ab Hep Bs Antigen Hep B Core IgM Ab Hepatitis C Antibody HIV 1&2 Antibody Screen Blood Type Antibody Screen 08/26/18 08/26/18 08/26/18 06:20 06:47 07:55 WBC RBC Hgb Hct MCV MCH MCHC RDW Plt Count MPV Neut % (Auto) Lymph % (Auto) [place] % (Auto) Eos % (Auto) Baso % (Auto) Neut # (Auto) Lymph # (Auto) [place] # (Auto) Eos # (Auto) Baso # (Auto) Sodium Potassium Chloride Carbon Dioxide Anion Gap BUN Creatinine Est GFR ( Amer) Est GFR (Non-Af Amer) Random Glucose Calcium Total Bilirubin AST ALT Alkaline Phosphatase Total Protein Albumin Globulin Albumin/Globulin Ratio Urine Color Urine Clarity Urine pH Ur Specific [place] Urine Protein Urine Glucose (UA) Urine Ketones Urine Blood Urine Nitrate Urine Bilirubin Urine Urobilinogen Ur Leukocyte Esterase Urine WBC (Auto) Urine RBC (Auto) Ur Squamous Epith Cells Urine Bacteria Urine Opiates Screen Urine Methadone Screen Ur Barbiturates Screen Ur Phencyclidine Scrn Ur Amphetamines Screen U Benzodiazepines Scrn U Oth Cocaine Metabols U Cannabinoids Screen Hepatitis A IgM Ab Negative Hep Bs Antigen Negative Hep B Core IgM Ab Negative Hepatitis C Antibody Negative HIV 1&2 Antibody Screen Blood Type AB POSITIVE AB POSITIVE Antibody Screen Negative Negative 08/26/18 08/26/18 07:55 07:59 WBC RBC Hgb Hct MCV MCH MCHC RDW Plt Count MPV Neut % (Auto) Lymph % (Auto) [place] % (Auto) Eos % (Auto) Baso % (Auto) Neut # (Auto) Lymph # (Auto) [place] # (Auto) Eos # (Auto) Baso # (Auto) Sodium 135 Potassium 3.6 Chloride 106 Carbon Dioxide 23 Anion Gap 10 BUN 10 Creatinine 0.5 L Est GFR ( Amer) > 60 Est GFR (Non-Af Amer) > 60 Random Glucose 114 H D Calcium 8.1 L Total Bilirubin 0.9 AST 363 H D ALT 548 H Alkaline Phosphatase 282 H D Total Protein 5.9 L Albumin 2.9 L Globulin 3.0 Albumin/Globulin Ratio 1.0 Urine Color Urine Clarity Urine pH Ur Specific [place] Urine Protein Urine Glucose (UA) Urine Ketones Urine Blood Urine Nitrate Urine Bilirubin Urine Urobilinogen Ur Leukocyte Esterase Urine WBC (Auto) Urine RBC (Auto) Ur Squamous Epith Cells Urine Bacteria Urine Opiates Screen Urine Methadone Screen Ur Barbiturates Screen Ur Phencyclidine Scrn Ur Amphetamines Screen U Benzodiazepines Scrn U Oth Cocaine Metabols U Cannabinoids Screen Hepatitis A IgM Ab Hep Bs Antigen Hep B Core IgM Ab Hepatitis C Antibody HIV 1&2 Antibody Screen Negative Blood Type Antibody Screen Assessment & Plan (1) Elevated liver enzymes Assessment and Plan: Undetermined cause. Asymptomatic. Normal delivery today. Will check labwork for chronic liver disease + sonogram Status: Acute
[2018-08-26 16:20] LABS: IRON 50 ug/dL (37-170)
[2018-08-26 16:32] LABS: TOTAL IRON BINDING CAPACITY 527 ug/dL (250-450)
--- NOTE | 2018-08-26 17:20 | US ---
HISTORY: Elevated LFTs COMPARISON: CT abdomen and pelvis without contrast performed 11/29/16 TECHNIQUE: Sonographic evaluation of the abdomen. FINDINGS: LIVER: Measures 19.3 cm in sagittal dimension and appears within normal limits of size, shape, and echotexture. No focal hepatic mass identified. The main portal vein appears patent with normal directional flow. No intrahepatic bile duct dilatation. GALLBLADDER: No gallstones. No gallbladder wall thickening. Negative sonographic Goldstein's sign as assessed by the museum preparator. COMMON BILE DUCT: Measures 4 mm. PANCREAS: Not well visualized. RIGHT KIDNEY: Measures 9.8 x 4.7 x 4.5 cm. No obstructing calculus or hydronephrosis identified. LEFT KIDNEY: Measures 10.9 x 5.0 x 4.9 cm. No obstructing calculus or hydronephrosis identified. SPLEEN: Measures approximately 10 cm. Trace perisplenic fluid. AORTA: Limited views appear unremarkable. IVC: Limited views appear unremarkable. OTHER FINDINGS: None. IMPRESSION: Trace perisplenic fluid. Otherwise unremarkable study as above.
[2018-08-26 17:22] LABS: % IRON SATURATION 9 (20-55)
[2018-08-26] MEDS ORDERED: Methadone 40 mg Tab PO ONE (19:30)
[2018-08-26] MEDS: Methadone 40 mg Tab PO ONE ×2 (19:40→19:51)
[2018-08-27 08:45] LABS: BASO % 0.5 % (0.0-2.0); EOS # 0.1 K/uL (0.0-0.7); EOS % 1.3 % (0.0-4.0); HEMOGLOBIN 8.4 g/dL (11.0-16.0); LYMPH # 2.7 K/uL (1.0-4.3); LYMPH % 40.4 % (20.0-40.0); MEAN CELL VOLUME 79.7 fL (81.0-99.0); MEAN CORPUSCULAR HEMOGLOBIN 24.7 pg (27.0-31.0); MEAN PLATELET VOLUME 11.1 fL (7.2-11.7); MONO # 0.7 K/uL (0.0-0.8); MONO % 10.3 % (0.0-10.0); NEUT # 3.2 K/uL (1.8-7.0); NEUT % 47.5 % (50.0-75.0); RBC 3.38 Mil/uL (3.80-5.20); RED CELL DISTRIBUTION WIDTH 17.6 % (11.5-14.5); WHITE BLOOD COUNT 6.7 K/uL (4.8-10.8)
[2018-08-27 08:56] LABS: ALB/GLOB RATIO 0.9 (1.0-2.1); ALBUMIN 2.6 g/dL (3.5-5.0); ALT/SGPT 440 U/L (9-52); AST/SGOT 270 U/L (14-36); BILIRUBIN,DIRECT 0.6 mg/dL (0.0-0.4); BLOOD UREA NITROGEN 7 mg/dL (7-17); CALCIUM 7.8 mg/dl (8.6-10.4); GFR NON-AFRICAN AMERICAN > 60
[2018-08-27] MEDS: Multiple Vitamins Tab PO SCH (10:05)
[2018-08-27 10:33] LABS: URIC ACID 5.9 mg/dL (2.2-7.5)
--- NOTE | 2018-08-27 10:40 | CP.PCM.PN ---
Subjective - Date & Time of Evaluation Date of Evaluation: 08/27/18 Time of Evaluation: 10:38 - Subjective Subjective: f/u e;ev LFTs. Feels well, No RB, abd pain, nause, vomit, fever, chills, SZ, LOC Objective - Vital Signs/Intake and Output Vital Signs (last 24 hours): Temp Pulse Resp BP Pulse Ox 97.9 F 63 18 110/59 L 99 08/27/18 08:00 08/27/18 08:00 08/27/18 08:00 08/27/18 08:00 08/27/18 00:00 - Medications Medications: Current Medications Benzocaine/Menthol (Dermoplast 20%-0.5%) 0 ml TOP Q6 PRN PRN Reason: Perineal Discomfort Docusate Sodium (Colace) 100 mg PO BID [facility] Last Admin: 08/27/18 10:05 Dose: 100 mg Ferrous Gluconate (Fergon) 324 mg PO BID [facility] Last Admin: 08/27/18 10:05 Dose: 324 mg Ibuprofen (Motrin Tab) 600 mg PO Q6 PRN PRN Reason: Pain, Mild (1-3) Last Admin: 08/26/18 10:02 Dose: 600 mg Multivitamins (Hexavitamin) 1 tab PO DAILY [facility] Last Admin: 08/27/18 10:05 Dose: 1 tab Sennosides (Senokot Tab) 17.2 mg PO DAILY [facility] Last Admin: 08/27/18 10:06 Dose: 17.2 mg - Labs Labs: 08/27/18 08:32 08/27/18 08:32 - Constitutional Appears: Well - Respiratory Exam Respiratory Exam: Clear to Ausculation Bilateral - Cardiovascular Exam Cardiovascular Exam: RRR - GI/Abdominal Exam GI & Abdominal Exam: Soft, Normal Bowel Sounds. absent: Tenderness - Neurological Exam Neurological Exam: Alert, Awake, Oriented x3 Assessment and Plan (1) Assessment & Plan: s/p delivery Status: Acute (2) Elevated liver enzymes Assessment & Plan: Labs improving. Sono- min fluid around spleen. Hep profile is neg. COnsider liver dis preg, meds. Pt is on methadone. Rec- follow LFTs, check LELA. No alcohol. Avoid herbals. Status: Acute
--- NOTE | 2018-08-27 16:56 | OBPPN ---
Datetime: 08/27/2018 07:30 PP Pain Prov: Within normal limits PP Nausea Prov: Denies PP Flatus Prov: No PP BM Prov: No PP Heart Prov: Normal PP Lungs Prov: Normal PP Abdomen/Uterus Prov: Normal PP Extremities Prov: Normal PP Comments Phys Exam Prov: VSS PE Gen: in no acute distress Heart: RRR, no murmurs auscultated Lungs: CTA b/l, no W/R/R Abd: soft, nontender, +BS, fundal height 1 fingerbreadth Ext: no edema, 2+ posterior tibial pulses, nontender PP Impression Prov: Normal progression PP Plan Prov: Continue present management PP Progress Note Prov: Patient was seen and examined at bedside in no acute distress. Patient report s feeling tired; otherwise has no additional complaints. She has not had flatus or a BM since the [facility]. She is without difficulty and tolerating her diet. Plan: 37 year old s/p , PPD#1 1. Continue pain management: Motrin prn 2. Continue Colace and Senna for constipation 3. Continue MV and Iron 4. Continue as per Dr. Palumbo. sales enablement consultant was consulted. 5. Encouraged ambulation 6. Elevated transaminases: GI (Dr. Tovar) was consulted. Hepatitis panel and abdominal US were or dered and were negative/unremarkable. Will follow up GI's recommendations and will continue to trend labs. 7. + Methadone and Opiates detected in urine on admission and also in baby's urine. SS notified an d evaluating Inez Arriaga, PGY2 Pt seen and examined with Dr. Fang and POC reviewed and fully discussed with her. Agreed with he r findings and POC. Vital Signs Provider PP: Reviewed; Within Normal Limits
[2018-08-27] MEDS ORDERED: Methadone 40 mg Tab PO PRN (17:29)
[2018-08-27] MEDS ORDERED: Potassium Chloride 20 mEq ER Tab PO ONE (18:30)
[2018-08-27] MEDS: Potassium Chloride 20 mEq ER Tab PO ONE ×2 (18:34→18:42)
[2018-08-27 18:36] LABS: CREATININE, RANDOM URINE 76.2 mg/dL
[2018-08-28 00:08] VITALS: RESP 20
[2018-08-28 07:45] LABS: ALB/GLOB RATIO 0.9 (1.0-2.1); ALBUMIN 2.9 g/dL (3.5-5.0); ALT/SGPT 383 U/L (9-52); AST/SGOT 186 U/L (14-36); BLOOD UREA NITROGEN 9 mg/dL (7-17); CALCIUM 8.4 mg/dl (8.6-10.4); GFR NON-AFRICAN AMERICAN > 60
[2018-08-28] MEDS: Multiple Vitamins Tab PO SCH (10:30)
--- NOTE | 2018-08-28 12:02 | CP.PCM.PN ---
Subjective - Date & Time of Evaluation Date of Evaluation: 08/28/18 Time of Evaluation: 12:00 - Subjective Subjective: LFTs steadily improving Denies abdominal pain, N/V May be discharged- follow up LFTs at post visit with OB. If needed pt can see me in office Objective - Vital Signs/Intake and Output Vital Signs (last 24 hours): Temp Pulse Resp BP Pulse Ox 97.6 F 75 20 134/83 98 08/28/18 00:00 08/28/18 00:00 08/28/18 00:00 08/28/18 00:00 08/28/18 00:00 - Medications Medications: Current Medications Benzocaine/Menthol (Dermoplast 20%-0.5%) 0 ml TOP Q6 PRN PRN Reason: Perineal Discomfort Docusate Sodium (Colace) 100 mg PO BID [facility] Last Admin: 08/28/18 10:31 Dose: 100 mg Ferrous Gluconate (Fergon) 324 mg PO BID [facility] Last Admin: 08/28/18 10:30 Dose: 324 mg Ibuprofen (Motrin Tab) 600 mg PO Q6 PRN PRN Reason: Pain, Mild (1-3) Last Admin: 08/26/18 10:02 Dose: 600 mg Methadone HCl (Methadone) 20 mg PO ONCE PRN PRN Reason: withdrawal symptoms Last Admin: 08/27/18 19:34 Dose: 20 mg Methadone HCl (Methadose) 40 mg PO ONCE PRN PRN Reason: WITHRDAWAL Last Admin: 08/27/18 19:34 Dose: 40 mg Multivitamins (Hexavitamin) 1 tab PO DAILY [facility] Last Admin: 08/28/18 10:30 Dose: 1 tab Sennosides (Senokot Tab) 17.2 mg PO DAILY [facility] Last Admin: 08/28/18 10:30 Dose: 17.2 mg - Labs Labs: 08/27/18 08:32 08/28/18 07:23 - Constitutional Appears: Well - Eye Exam Eye Exam: absent: Scleral icterus - Cardiovascular Exam Cardiovascular Exam: REGULAR RHYTHM - GI/Abdominal Exam GI & Abdominal Exam: Soft. absent: Tenderness Assessment and Plan (1) Elevated liver enzymes Assessment & Plan: improving, may have been related Awaiting AMA, Smooth muscle AB. follow up in office Status: Acute
[2018-08-28] MEDS ORDERED: Methadone 40 mg Tab PO STA (15:17)
--- NOTE | 2018-08-28 16:01 | OBPPN ---
Datetime: 08/28/2018 07:06 PP Pain Prov: Within normal limits PP Nausea Prov: Denies PP BM Prov: No PP Heart Prov: Normal PP Lungs Prov: Normal PP Comments Phys Exam Prov: Gen: no acute distress Heart: RRR, no m/r/g Lungs: CTAB, no r/r/w Abd: soft, nontender, +BS, fundal height 1 fingerbreadth below umbilicus Ext: no edema, 2+ posterior tibial pulses, nontender PP Impression Prov: Normal progression PP Plan Prov: Discharge PP Progress Note Prov: Patient was seen and examined today at bedside in no acute distress. She lon es pain, n/v. She is eating well, but hasn't passed flatus or had a BM since delivery. She is still h aving some mild lochia, easily absorbed with a panty liner. A/P: 37 year old s/p , PPD#2 1. Continue pain management: Motrin prn 2. Continue MV and Iron 3. Continue as per Dr. Palumbo. emergency management consultant was consulted. 4. Encouraged ambulation 5. Elevated transaminases: GI (Dr. Tovar) was consulted. Hepatitis panel and abdominal US were or dered and were negative/unremarkable. LELA, Anti-mitochondria Ab, Anti-smooth muscle Ab negative. Awai ting liver/kidney microsomes Ab. Medically stable for discharge since LFTs steadily downtrending. Can follow up LFT levels at OB f/u visit. Can also f/u with GI in office if pain develops, or LFTs incre ase. 6. + Methadone and Opiates detected in urine on admission and also in baby's urine. SS notified an d evaluating Emy Fuentes PGY-1 Attending Note: patient seen, evaluated and examined by me with the Resident. I agree with the ab ove as documented. [facility] case management associate has communicated with the staff on Mother-Baby, is not to be discharged home with mother. Mother is aware. She is clinically stable and cleared for discharge Plan: 1) Discharge home 2) See full discharge instructions IP PP Procedures: None Vital Signs Provider PP: Reviewed; Within Normal Limits Datetime: 08/27/2018 07:30 PP Breasts Prov: Not Done (Annotations: Data stored by CPN on behalf of user)
--- NOTE | 2018-08-28 16:04 | OBDCSUM ---
Datetime: 08/28/2018 16:00 Discharged to, Provider: Home Follow up at, Provider: 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
[2018-08-28 21:00] VITALS: BP 117/68; PULSE 72; TEMP 97.1; O2SAT 97
== END 2018-08-28 16:00 | disposition home or self-care (01) | DRG 373 ==
LOC: C.EROB 03:43 → C.4D 03:44 → C.4M 06:12
PROVIDERS: ADMIT Obstetrics & Gynecology; ATTEND Obstetrics & Gynecology
PROC: 10E0XZZ Delivery of Products of Conception, External Approach (ICD-10-PCS; principal; 2018-08-26)
DX: O69.81X0 Labor and delivery complicated by cord around neck, without compression, not applicable or unspecified (principal); O99.324 Drug use complicating childbirth; F11.20 Opioid dependence, uncomplicated; O26.893 Other specified pregnancy related conditions, third trimester; R74.8 Abnormal levels of other serum enzymes; O62.3 Precipitate labor; M79.7 Fibromyalgia; Z3A.36 36 weeks gestation of pregnancy; Z30.09 Encounter for other general counseling and advice on contraception; Z87.891 Personal history of nicotine dependence; Z87.442 Personal history of urinary calculi; Z37.0 Single live birth